=== PATIENT | male | born 1965 ===

== ENCOUNTER 2016-05-20 17:16 | Inpatient (IN) | payer OTHER ==
[~2016-05-20] VITALS: Ht 185.4 cm; Wt 108.9 kg
[~2016-05-20 17:16] MED LIST: CARV12.52 PO; GABA-536 PO; LAMO200T2 PO; VENL150C2 PO
--- NOTE | 2016-05-20 20:30 | NUR ---
ADMISSION NOTE BP: 157/98 HR: 94 RR: 16 SpO2: 100% T: 98.3 Pain: pt denies pain at this time. Ht: 6'1" Wt: 240 lbs CIWA: 8 Pt arrived ambulatory from [facility] to the third floor accompanied by a BHT at 1946. Pt is a 50 year old male admitted on 05/20/16 for ETOH dependency. Pt is full code with NKA. Pt reports a PMHx of hypertension, hyperlipidemia, hepatitis C, herniated disc, anxiety, depression, bipolar and mood disorder. He denies any history of seizures. Pt verbalized that he fell in the bathroom today (05/20/16). No bruising noted. He reports that he did not hit his head, but hit his back on the door knob. He reports he was admitted to the hospital a week and a half ago d/t being drunk, falling and hitting his head. He reports he received a CT scan which was negative. He verbalized that he has a PCP named Dr. Velasquez. He reports taking home medications of: 1. Gabapentin 100 mg TID 2. Lamictal 50 mg daily 3. Effexor 75 mg daily 4. Carvedilol PO HS 5. Risperdal 1 mg AM, 2 mg HS He verbalized that he is here for ETOH withdrawal. He verbalized that his longest period of sobriety was 6 years from [id number]. He reports having relapses throughout the years and his last sobriety was for 6 months September 18 2015-March 20 2016. He reports his current use as: 1. ETOH 1 gallon of beer daily x1 month Last dose: " 96 oz of twisted tea" 05/19/16 at 8pm. He reports his withdrawal symptoms as: nausea, vomiting, sweats and shakes. Upon assessment, pt is alert and oriented x4, anxious and cooperative. Speech is clear and audible. Heart rate regular. Pt denies chest pain or SOB. PERRLA, breathing is even and unlabored, lung sounds clear in all lobes. Abdomen is soft and non distended. Bowel sounds present in all four quadrants, last BM 05/20/16. Pt reports that BM is regular. Pt's skin is warm, dry and intact. Minor scratch noted on forehead d/t pt's recent fall. No bleeding noted, skin intact. MD aware of pt's admission. Pt oriented to room and unit. Pt safe with bed locked in lowest position, side rails up x2 and call light within reach. Will continue to monitor.
[2016-05-20 21:00] VITALS: BP 157/98
[2016-05-20] MEDS ORDERED: LORAZEPAM 1 MG TABLET PO PRN (21:00)
[2016-05-20] MEDS ORDERED: THIAMINE HCL 200 MG/2 ML VIAL IM ONE (21:00)
[2016-05-20] MEDS ORDERED: MAG HYDROX/AL HYDROX/SIMETH 30 ML LIQUID UDC PO PRN (21:00)
[2016-05-20] MEDS ORDERED: LORAZEPAM 2 MG/1 ML VIAL IM PRN (21:00)
[2016-05-20] MEDS ORDERED: METHOCARBAMOL 750 MG TABLET PO PRN (21:00)
[2016-05-20] MEDS ORDERED: MAGNESIUM HYDROXIDE 30 ML LIQUID UDC PO PRN (21:00)
[2016-05-20] MEDS ORDERED: diphenhydrAMINE 50 MG CAPSULE PO PRN (21:00)
[2016-05-20] MEDS ORDERED: MIRALAX 17 GM POWD.PACK PO PRN (21:00)
[2016-05-20] MEDS ORDERED: ACETAMINOPHEN 325 MG TABLET PO PRN (21:00)
[2016-05-20] MEDS ORDERED: LOPERAMIDE HCL 2 MG CAPSULE PO PRN (21:00)
[2016-05-20] MEDS ORDERED: PROMETHAZINE HCL 25 MG/1 ML VIAL IM PRN (21:00)
[2016-05-20] MEDS ORDERED: DICYCLOMINE HCL 20 MG TABLET PO PRN (21:00)
[2016-05-20] MEDS: ONDANSETRON ODT 4 MG TAB.RAPDIS SL PRN (21:11)
[2016-05-20] MEDS: CLONIDINE HCL 0.1 MG TABLET PO PRN (21:11)
[2016-05-20] MEDS: LORAZEPAM 1 MG TABLET PO PRN (21:11)
--- NOTE | 2016-05-20 21:12 | NUR ---
RN note Clonidine, Ativan, Zofran PRNs Pt with QR=347/[id number]. Administered Clonidine 0.1 mg PO Pt with c/o Nausea, no vomiting. Administered Zofran 4 mg SL. Pt c/o withdrawal symptoms, noted to have tremors, flushed skin and increasing anxiety. Administered Ativan 1 mg PO. CIWA=8. No SOB noted. RN to reassess.
[2016-05-20 21:31] LABS: BASOPHILS # (AUTO) 0.2 K/uL (0.0-0.2); BASOPHILS % (AUTO) 2.5 % (0.0-2.0); EOSINOPHILS % (AUTO) 0.5 % (0.0-7.0); HEMOGLOBIN 17.5 g/dL (14.0-18.0); LYMPHOCYTES # (AUTO) 0.8 K/uL (0.8-4.8); LYMPHOCYTES % (AUTO) 10.8 % (20.5-51.5); MEAN CORPUSCULAR HEMOGLOBIN 30.9 uug (27.0-31.0); MEAN CORPUSCULAR HGB CONC 34 g/dL (32.0-37.0); MEAN CORPUSCULAR VOLUME 89.9 fL (82.0-92.0); MONOCYTES # (AUTO) 0.8 K/uL (0.1-1.30); MONOCYTES % (AUTO) 11.2 % (0.0-11.0); NEUTROPHILS # (AUTO) 5.2 K/uL (1.8-8.9); PLATELET COUNT (AUTO) 137 K/uL (150-450); RED BLOOD CELL COUNT(AUTO) 5.67 MIL/uL (4.70-6.10); RED CELL DISTRIBUTION WIDTH 14.3 % (11.5-14.5)
[2016-05-20 21:33] LABS: ETHANOL < 3 MG/DL (0-0)
[2016-05-20 21:35] LABS: *AMPHETAMINE, URINE NEGATIVE (NEGATIVE); *BARBITURATE, URINE NEGATIVE (NEGATIVE); *CANNABINOID, URINE NEGATIVE (NEGATIVE); *COCCAINE, URINE NEGATIVE (NEGATIVE); *OPIATE, URINE NEGATIVE (NEGATIVE); *PHENCYCLIDINE SCREEN,URINE NEGATIVE (NEGATIVE)
[2016-05-20 21:48] LABS: ALANINE AMINOTRANSFERASE 217 U/L (16-63); ALKALINE PHOSPHATASE 77 U/L (50-136); ASPARTATE AMINOTRANSFERASE 229 U/L (15-37); BILIRUBIN,TOTAL 1.6 mg/dL (0.2-1.0); CALCIUM 9.6 mg/dL (8.5-10.1); CARBON DIOXIDE 29 mmol/L (21-32); CHLORIDE 96 mmol/L (98-107); CREATININE 1.3 mg/dL (0.6-1.3); GFR 58 mL/min (>60); GLUCOSE 170 mg/dL (74-106); POTASSIUM 3.8 mmol/L (3.5-5.1); SODIUM SERUM 136 mmol/L (136-145); TOTAL PROTEIN, SERUM 8.2 g/dL (6.4-8.2); UREA NITROGEN, BLOOD 18 mg/dL (7-18)
--- NOTE | 2016-05-20 22:12 | NUR ---
PRN CLONIDINE/ATIVAN/ZOFRAN REASSESSMENT PRN medications effective. Pt reports feeling better, decreased anxiety and decreased nausea. Noted to be resting in bed watching TV. Breathing is even and unlabored, safety measures in place. Will continue to monitor.
[2016-05-20 22:22] LABS: HIV-1 p24 ANTIGEN NON REACTIVE (NONREACTIVE); HIV-1/2 ANTIBODY NON REACTIVE (NONREACTIVE)
[2016-05-20 22:55] LABS: THYROID STIMULATING HORMONE 1.891 mIU/mL (0.358-3.740)
[2016-05-20] MEDS ORDERED: LORAZEPAM 1 MG TABLET PO ONE (23:45)
[2016-05-21] VITALS: BP 133/99
--- NOTE | 2016-05-21 00:05 | NUR ---
ONE TIME ATIVAN Pt reports feeling anxious/agitated and nauseous. CIWA: 9. One time Ativan 2 mg administered as ordered. Breathing even and unlabored, safety measures in place. Will continue to monitor effectiveness.
--- NOTE | 2016-05-21 01:05 | NUR ---
ONE TIME ATIVAN REASSESSMENT Medication effective. Pt lying in bed with eyes closed noted to be asleep. Respirations 16, breathing is even and unlabored. Safety measures in place. Will continue to monitor.
[2016-05-21 04:00] VITALS: BP 123/85
[2016-05-21] MEDS: ONDANSETRON ODT 4 MG TAB.RAPDIS SL PRN (04:13)
[2016-05-21] MEDS: LORAZEPAM 1 MG TABLET PO PRN (04:13)
--- NOTE | 2016-05-21 04:13 | NUR ---
PRN ATIVAN/ZOFRAN Pt reports feeling nauseous and anxious. Skin noted to be flushed. PRN Ativan 1 mg and Zofran 4 mg administered as ordered. CIWA:9. Breathing even and unlabored. Safety measures in place. Will continue to monitor.
--- NOTE | 2016-05-21 05:13 | NUR ---
PRN ATIVAN/ZOFRAN REASSESSMENT PRN medications effective. Pt lying in bed with eyes closed resting. Breathing even and unlabored, safety measures in place. Will continue to monitor.
--- NOTE | 2016-05-21 07:18 | NUR ---
END OF SHIFT Pt is a 50 year old male admitted on 05/20/16 for ETOH dependency. Pt is full code with NKA. He reports a PMHx of hypertension, hyperlipidemia, hepatitis C, herniated disc, anxiety, depression, bipolar and mood disorder. He denies any history of seizures. He received PRN Zofran x2, Clonidine, and Ativan x2. He slept a total of 3 hrs of and on, Intake: 1184 mL, Void: x2, BM: 0, CIWA: 9. Pt remains alert and oriented x4, breathing is even and unlabored, safety measurs in place. Endorsed to oncoming shift.
--- NOTE | 2016-05-21 07:49 | NUR ---
BEGINNING OF SHIFT Patient endorsement report received from date night caregiver nurse, all pertinent information discussed. patient is a 50 year old male admitted on 05/20/2016 with admitting Dx: etoh dependence. Patient with substance use history of:etoh-beer 1 gallon daily for one month. Patient with past medical history of: hypertension, hyperlipidemia, hep c + herniated disc, anxiety, depression, bipolar d/o, and mood d/o. Patient currently continues under observations, currently with no ongoing tapers, but has PRN medications for s/sx of withdrawal, as per date night caregiver patient received clonidine Ativan and Zofran at 2112, Ativan one time dose at 0005, Ativan and Zofran at 0413, medications were effective as per date night caregiver, patient with last ciwa score of: 9. Patient slept for 3 hours intermittently. Patient received awake, alert and oriented x4, educated regarding plan of care for the day and medication with regimen with good verbal understanding. safety measures in place. call light with in reach, will construes to monitor closely.
[2016-05-21 08:09] VITALS: BP 123/91
[2016-05-21] MEDS ORDERED: GABAPENTIN 400 MG CAPSULE PO SCH (09:00)
[2016-05-21] MEDS ORDERED: TUBERCULIN,PURIF.PROT.DERIV. 5 TU/0.1 ML TEST ID ONE (09:00)
[2016-05-21] MEDS: THIAMINE HCL 100 MG TABLET PO SCH (09:07)
[2016-05-21] MEDS: MULTIVITAMINS,THERAPEUTIC TABLET PO SCH (09:07)
[2016-05-21] MEDS: GABAPENTIN 100 MG CAPSULE PO SCH ×3 (09:07→21:05)
[2016-05-21] MEDS: LORAZEPAM 1 MG TABLET PO SCH ×4 (09:07→21:05)
[2016-05-21] MEDS: FOLIC ACID 1 MG TABLET PO SCH (09:08)
--- NOTE | 2016-05-21 09:08 | NUR ---
PRN PHENERGAN Patient reports intermittent nausea, no episodes of vomiting noted. Patient administered Phenergan injection as ordered, well tolerated, will monitor effectiveness.
[2016-05-21] MEDS: CARVEDILOL 25 MG TABLET PO SCH ×2 (09:17→18:29)
--- NOTE | 2016-05-21 10:08 | NUR ---
PHENERGAN REASSESSMENT Patient reports medication effective, feels less nausea, no episodes of vomiting noted, will continue to monitor.
[2016-05-21 13:18] VITALS: BP 122/86
[2016-05-21] MEDS: VENLAFAXINE XR 150 MG CAP.SR.24H PO SCH (13:36)
--- NOTE | 2016-05-21 14:00 | NUR ---
UDS POSITIVE BZO urine drug screen results patient, per patient he was hospitalized one week prior to coming here for public intoxication, per patient he has never taken bzo before, but he was probably administered some at the hospital, MD is aware will continue to monitor.
[2016-05-21 16:20] VITALS: BP 128/87
--- NOTE | 2016-05-21 18:58 | NUR ---
END OF SHIFT Patient alert and oriented x4, compliant with therapeutic plan of care, vital signs with in normal limits during shift. Patient continues on Ativan taper as ordered, well tolerated, no ASE. Patient with admitting Dx:etoh dependence. 0900 assessment patient presented with: intermittent nausea, fine tremors, barely sweat, moderate anxiety and mild agitation with ciwa score of: 13; 1300 assessment patient presented with: fine tremors, barely sweat, moderate anxiety, and mild agitation with ciwa score of: 9; 1700 assessment patient presented with: fine tremors, barely sweat, moderate anxiety, and mild agitation with ciwa score of: 9 Detox medication at reducing withdrawal symptoms as evident by decrease in ciwa scores. Patient encouraged to attend group therapies/sessions to learn new coping skills to prevent relapse, denies any SI/HI. Patient was administered PRN: Phenergan at 0908, medication effective one hour post administration. Patient encouraged increase in PO fluid intake as tolerated. Patients abdomen is soft and non distended, bowel sounds heard in all quadrats. no episodes of V/D noted. Safety measures in place. call light with in reach, patient endorsed to flame burner nurse, all pertinent information discussed.
--- NOTE | 2016-05-21 19:15 | NUR ---
START OF SHIFT Received 50 year old male patient admitted on 05/20/16 for ETOH dependency. Pt is full code with NKA. He reports a PMHx of hypertension, hyperlipidemia, hep C, herniated disc, anxiety, depression, bipolar and mood disorder. He reports drinking ETOH (beer) 1 gallon daily for one month. Last dose was 96 oz of twisted tea on 05/19/16. He denies any PMHx of seizure. Per endorsement, pt received PRN phenergan for nausea which was effective. Pt is alert and oriented x4, breathing is even and unlabored. Pt safe with bed locked in lowest position, side rails up x2 and call light within reach. Will continue to monitor.
[2016-05-21 20:00] VITALS: BP 118/81
[2016-05-21] MEDS: risperiDONE 2 MG TABLET PO SCH (21:05)
[2016-05-21] MEDS: LAMOTRIGINE 200 MG TABLET PO SCH (21:05)
[2016-05-22] VITALS: BP 118/86
[2016-05-22] MEDS: HYDROXYZINE PAMOATE 25 MG CAPSULE PO PRN (00:30)
--- NOTE | 2016-05-22 00:30 | NUR ---
PRN VISTARIL Pt complains of anxiety. PRN Vistaril administered as ordered. Breathing even and unlabored, safety measures in place. Will continue to monitor effectiveness of medication.
--- NOTE | 2016-05-22 01:30 | NUR ---
PRN VISTARIL REASSESSMENT PRN medication effective. Pt lying in bed with eyes closed noted to be asleep. Respirations 16, breathing is even and unlabored. Pt safe with bed locked in lowest position, side rails up x2 and call light within reach. Will continue to monitor.
--- NOTE | 2016-05-22 04:00 | NUR ---
VITALS 0400 vitals refused by pt. Breathing even and unlabored, safety measures in place. Will continue to monitor. Addendum: 05/22/16 at 0513 by KATHIA CHAPMAN RN Amended: Links added.
--- NOTE | 2016-05-22 07:18 | NUR ---
END OF SHIFT Pt is a 50 year old male patient admitted on 05/20/16 for ETOH dependency. Pt is full code with NKA. He reports a PMHx of hypertension, hyperlipidemia, hep C, herniated disc, anxiety, depression, bipolar and mood disorder. Pt received PRN Vistaril for anxiety which was effective. He slept a total of 7 hrs, Intake: 1210 mL, Void: x2, BM: x1, CIWA:7. Pt remains alert and oriented x4, breathing is even and unlabored. Pt safe with bed locked in lowest position, side rails up x2 and call light within reach. Endorsed to oncoming nurse.
[2016-05-22 08:00] VITALS: BP 116/77
--- NOTE | 2016-05-22 08:00 | NUR ---
START OF SHIFT Pt 50 y/o male admitted for etoh. Pt received in room awake in bed watching television. Pt alert and oriented to name, place, and time. Perrla. Skin warm and slightly moist to touch. Respirations even and unlabored. Bilateral hand tremors noted slightly. Pt with pressured speech during conversation this morning. It was reported that pt slept for 7 hours sleep last night. Bed on lowest position with side rails x2 up for safety. Call light within reach. No distress noted at this time.
[2016-05-22 08:25] LABS: FOLIC ACID 15.7 NG/ML (8.6-58.9)
[2016-05-22] MEDS: VENLAFAXINE XR 150 MG CAP.SR.24H PO SCH (08:41)
[2016-05-22] MEDS: CARVEDILOL 25 MG TABLET PO SCH ×2 (08:42→17:29)
[2016-05-22] MEDS: FOLIC ACID 1 MG TABLET PO SCH (08:42)
[2016-05-22] MEDS: GABAPENTIN 100 MG CAPSULE PO SCH ×3 (08:42→21:51)
[2016-05-22] MEDS: MULTIVITAMINS,THERAPEUTIC TABLET PO SCH (08:42)
[2016-05-22] MEDS: risperiDONE 1 MG TABLET PO SCH (08:42)
[2016-05-22] MEDS: THIAMINE HCL 100 MG TABLET PO SCH (08:42)
[2016-05-22] MEDS: LAMOTRIGINE 200 MG TABLET PO SCH (08:42)
[2016-05-22] MEDS: LORAZEPAM 1 MG TABLET PO SCH ×3 (08:42→21:50)
[2016-05-22 08:52] LABS: ALBUMIN 3.2 g/dL (3.4-5.0); BILIRUBIN,DIRECT 0.3 mg/dL (0.0-0.2); CALCIUM 8.6 mg/dL (8.5-10.1); MAGNESIUM 1.9 mg/dL (1.8-2.4); POTASSIUM 3.7 mmol/L (3.5-5.1); TOTAL PROTEIN, SERUM 6.6 g/dL (6.4-8.2)
[2016-05-22 11:10] LABS: HEMATOCRIT 42.8 % (40.0-50.0); LYMPHOCYTES % (AUTO) 28.6 % (20.5-51.5); MEAN CORPUSCULAR HGB CONC 35 g/dL (32.0-37.0); MEAN CORPUSCULAR VOLUME 91.4 fL (82.0-92.0); NEUTROPHILS % (AUTO) 53.5 % (38.5-71.5); PLATELET COUNT (AUTO) 204 K/uL (150-450); RED BLOOD CELL COUNT(AUTO) 4.68 MIL/uL (4.70-6.10); RED CELL DISTRIBUTION WIDTH 14.6 % (11.5-14.5); WHITE BLOOD COUNT (AUTO) 6.4 K/uL (4.0-11.2)
[2016-05-22 11:11] LABS: BASOPHILS # (AUTO) 0.1 K/uL (0.0-0.2); EOSINOPHILS # (AUTO) 0.2 K/uL (0.0-0.7); LYMPHOCYTES # (AUTO) 1.8 K/uL (0.8-4.8); MONOCYTES # (AUTO) 0.9 K/uL (0.1-1.30); MONOCYTES % (AUTO) 13.9 % (0.0-11.0); NEUTROPHILS # (AUTO) 3.4 K/uL (1.8-8.9)
--- NOTE | 2016-05-22 11:30 | NUR ---
NSG ENTRY LABS: Mf=175, A1c=6.3. Dr. Duarte made aware.
[2016-05-22 12:00] VITALS: BP 126/80
[2016-05-22 13:25] LABS: HCV AB >11.0 s/co ratio (0.0-0.9); HEPATITIS B CORE AB, IgM Negative (Negative); HEPATITIS B SURFACE AG Negative (Negative)
--- NOTE | 2016-05-22 14:00 | NUR ---
NSG ENTRY Pt observed in room on bed with eyes closed resting, but easily arousable to name. No distress noted at this time.
[2016-05-22 16:00] VITALS: BP 116/81
--- NOTE | 2016-05-22 19:20 | NUR ---
END OF SHIFT Pt 50 y/o male admitted for etoh dependence. Pt alert and oriented to name, place, and time. Perrla. Skin warm and slightly moist to touch. Respirations even and unlabored. Bilateral hand tremors noted slightly. Pt observed mostly in dining room throughout the day. Pt medication compliant and tolerated well. No ASe noted. Bed on lowest position with side rails x2 up for safety. Call light within reach. No distress noted at this time.
[2016-05-22 20:00] VITALS: BP 105/66
--- NOTE | 2016-05-22 20:00 | NUR ---
START OF SHIFT NOTE Received report from day shift nurse. Pt is 50 y o male, admitted on 05/20/16 for etoh (1 gallon of beer daily for 1 month). Pt is on 5 day Ativan taper started 05/22/16. Pt aaox4. Pt reports mild anxiety, reinforced on relaxation techniques. Noted minimal fingertip to fingertip tremors. Pt denies tingling/ numbing. Lung sounds clear, heart rate regular. Pt denies n/v/d, last BM 05/22/16. Pt denies urinary difficulties. Na 127 mg/ dL, HbA1C 6.3; made aware, NNO PMH of HTN, hyperlipidemia, Hepatitis C, anxiety, depression, bipolar, mood disorder, herniated disc. Pt full code, regular diet, NKA. Pt is on fall precautions, side rails up x 2, bed locked in lowest position, too light within reach. Will continue with plan of care.
[2016-05-22] MEDS: risperiDONE 2 MG TABLET PO SCH (21:51)
--- NOTE | 2016-05-23 | NUR ---
VS, CIWA Pt refused VS and CIWA assessment, state he wants to sleep and not to be bothered. Pt asleep, RR even and unlabored at 19breaths per minute. Side rails up x 2, call light within reach, bed locked in lowest position. Will continue To monitor Addendum: 05/23/16 at 0516 by SATHYA OSPINA RN Amended: Links added.
[2016-05-23 04:00] VITALS: BP 124/87
--- NOTE | 2016-05-23 04:00 | NUR ---
PRN VISTARIL Pt awake, c/o increasing anxiety; VS WNL; CIWA 4. Administered V Istaril 50 mg PO prn for anxiety. Side rails up x 2, bed in lowest position, call light within reach
[2016-05-23] MEDS: HYDROXYZINE PAMOATE 25 MG CAPSULE PO PRN (04:12)
--- NOTE | 2016-05-23 05:00 | NUR ---
REASSESSMENT Pt seeping soundly; RR even and unlabored. Will continue to monitor
--- NOTE | 2016-05-23 07:44 | NUR ---
END OF SHIFT NOTE Pt is 50 y o male, admitted on 05/20/16 for etoh (1 gallon of beer daily for 1 month). Pt is on day 2 of 5 day Ativan taper started 05/22/16. Withdrawal s/s included anxity, tremors, sweats. Last CIWA = 4 at 0400, VSS. Pt received all scheduled medications, as well as prn Vistaril for anxiety at 0400. Vistaril was effective. Noted . Na 127 mg/ dL, HbA1C 6.3; made aware, NNO. Pt slept for 5 hrs. PMH of HTN, hyperlipidemia, Hepatitis C, anxiety, depression, bipolar, mood disorder, herniated disc. Pt full code, regular diet, NKA. Pt is on fall precautions. Report endorsed to day shift nurse.
[2016-05-23 08:00] VITALS: BP 115/65
[2016-05-23] MEDS: VENLAFAXINE XR 150 MG CAP.SR.24H PO SCH (08:00)
[2016-05-23] MEDS: risperiDONE 1 MG TABLET PO SCH (08:00)
[2016-05-23] MEDS: MULTIVITAMINS,THERAPEUTIC TABLET PO SCH (08:00)
--- NOTE | 2016-05-23 08:00 | NUR ---
START OF SHIFT Pt 50 y/o male admitted for etoh. Pt received in room awake in bed watching television. Pt alert and oriented to name, place, and time. Perrla. Skin warm and slightly moist to touch. Respirations even and unlabored. Bilateral hand tremors noted slightly. Pt with pressured speech during conversation this morning. It was reported that pt slept for 5 hours sleep last night. Bed on lowest position with side rails x2 up for safety. Call light within reach. No distress noted at this time.
[2016-05-23] MEDS: FOLIC ACID 1 MG TABLET PO SCH (08:01)
[2016-05-23] MEDS: CARVEDILOL 25 MG TABLET PO SCH ×2 (08:01→17:30)
[2016-05-23] MEDS: THIAMINE HCL 100 MG TABLET PO SCH (08:01)
[2016-05-23] MEDS: LORAZEPAM 1 MG TABLET PO SCH ×4 (08:01→20:59)
[2016-05-23] MEDS: GABAPENTIN 100 MG CAPSULE PO SCH ×3 (08:01→20:59)
[2016-05-23] MEDS: LAMOTRIGINE 200 MG TABLET PO SCH (08:01)
[2016-05-23 10:11] LABS: BILIRUBIN,DIRECT 0.2 mg/dL (0.0-0.2); BILIRUBIN,TOTAL 0.5 mg/dL (0.2-1.0); CALCIUM 8.6 mg/dL (8.5-10.1); TOTAL PROTEIN, SERUM 6.2 g/dL (6.4-8.2)
[2016-05-23] MEDS: LOPERAMIDE HCL 2 MG CAPSULE PO PRN (11:19)
--- NOTE | 2016-05-23 11:26 | NUR ---
PRN Pt with observed loose stool. Pt stated had 2 episodes of loose stool this morning but did not notify any staff. Encouraged pt to notify staff with each episode of loose stool. Immodium 4mg po prn initial dose given and tolerated well.
[2016-05-23 12:00] VITALS: BP 98/55
--- NOTE | 2016-05-23 14:00 | NUR ---
PRN EVAL Stool was collected for c.diff test - lab. Stool is formed.
[2016-05-23] MEDS: IBUPROFEN 400 MG TABLET PO PRN (14:36)
--- NOTE | 2016-05-23 14:37 | NUR ---
PRN Pt with c/o body aches 08/08. Motrin po prn per MD order given and tolerated well.
[2016-05-23 17:00] VITALS: BP 103/59
--- NOTE | 2016-05-23 19:31 | NUR ---
END OF SHIFT Pt 50 y/o male admitted for etoh dependence. Pt alert and oriented to name, place, and time. Perrla. Skin warm and slightly moist to touch. Respirations even and unlabored. Bilateral hand tremors noted slightly. Pt observed mostly in dining room throughout the day. Pt medication compliant and tolerated well. No ASe noted. Bed on lowest position with side rails x2 up for safety. Call doe devin martin. No distress noted at this time.
--- NOTE | 2016-05-23 19:55 | NUR ---
START OF SHIFT NOTE Received report from day shift nurse. Pt is 50 y o male, admitted on 05/20/16 for etoh (1 gallon of beer daily for 1 month). Pt is on day 2 of 5 day Ativan taper started 05/22/16. PMH of HTN, hyperlipidemia, Hepatitis C, anxiety, depression, bipolar, mood disorder, herniated disc. Pt full code, regular diet, NKA. Pt aaox4. Pt reports mild anxiety today on/off, reinforced on relaxation techniques. Skin intact, warm, flushed with minimal sweating. Noted minimal fingertip to fingertip tremors. Pt denies tingling/ numbing. Lung sounds clear, heart rate regular. Pt denies n/v/d at this time, last BM 05/23/16, bowel sounds active x 4 . Pt denies urinary difficulties. Pt is on fall precautions, side rails up x 2, bed locked in lowest position, too light within reach. Will continue with plan of care.
[2016-05-23 20:00] VITALS: BP 109/66
[2016-05-23] MEDS: risperiDONE 2 MG TABLET PO SCH (20:59)
--- NOTE | 2016-05-23 21:35 | NUR ---
RECEIVED NEW ORDER received new order from Dr Russell avitia Seroquel 50 mg HSPRN PO for sleep. Order clarified and carried out
[2016-05-23] MEDS ORDERED: QUETIAPINE FUMARATE 25 MG TABLET PO SCH (21:45)
--- NOTE | 2016-05-23 22:20 | NUR ---
PRN SEROQUEL Pt reports insomnia. Administered prn Seroquel 50 mg PO. Side rails up x 2, call light within reach, bed locked in lowest position
--- NOTE | 2016-05-23 23:30 | NUR ---
REASSESSMENT Pt sleeping soundly, did not disturb. RR even and unlabored
--- NOTE | 2016-05-24 | NUR ---
VS, CIWA Pt refused VS and CIWA assessment, states he wants to sleep and not to be bothered. Pt asleep, RR even and unlabored at 17 breaths per minute. Side rails up x 2, call light within reach, bed locked in lowest position. Will continue to monitor Addendum: 05/24/16 at 0324 by SATHYA OSPINA RN Amended: Links added.
--- NOTE | 2016-05-24 04:00 | NUR ---
VS, CIWA Pt refused VS and CIWA assessment, state he wants to sleep and not to be bothered. Pt in bed with eyes closed, RR even and unlabored at 19 breaths per minute. Side rails up x 2, call light within reach, bed locked in lowest position. Will continue to monitor Addendum: 05/24/16 at 0530 by SATHYA OSPINA RN Amended: Links added.
[2016-05-24] MEDS ORDERED: QUETIAPINE FUMARATE 25 MG TABLET PO PRN (07:05)
--- NOTE | 2016-05-24 07:19 | NUR ---
END OF SHIFT NOTE Pt is 50 y o male, admitted on 05/20/16 for etoh (1 gallon of beer daily for 1 month). Pt is on day 3 of 5 day Ativan taper started 05/22/16. Withdrawal s/s included anxiety, minimal tremors, flushed face, sweats, insomnia . Last CIWA = 4 at 0000, VSS. Pt received all scheduled medications. Pt c/o insomnia, was given Seroquel prn 50 mg (received new order from dr. Wells). Pt slept for 7 hrs. PO intake 1907 ml, urination x 3. Pt noted with hx of episodes of diarrhea 05/23/16, stool specimen collected for C Dif, pending results. PMH of HTN, hyperlipidemia, Hepatitis C, anxiety, depression, bipolar, mood disorder, herniated disc. Pt full code, regular diet, NKA. Pt is on fall precautions. Report endorsed to day shift nurse.
--- NOTE | 2016-05-24 07:19 | NUR ---
Start of shift note Pt was admitted for ETOH dependence. pt has a PMH of HTN, hyperlipemia, Hep C, herniated disc, anxiety, depression, bipolar and mood disorder. Pt is on a 5 day ativan taper. Per report, pt had diarrhea, stool for c-diff was sent to lab. Diarrhea was relieved with imodium. Pt is currently sleeping in his bed. Respirations are even and unlabored. Bed is locked in a low position, call light within reach. Will continue to monitor pt. All needs addressed at this time.
[2016-05-24 07:37] LABS: HEMATOCRIT 41.2 % (40.0-50.0); HEMOGLOBIN 13.7 g/dL (14.0-18.0); MEAN CORPUSCULAR HEMOGLOBIN 31.1 uug (27.0-31.0); MEAN CORPUSCULAR HGB CONC 33 g/dL (32.0-37.0); MEAN CORPUSCULAR VOLUME 93.3 fL (82.0-92.0); PLATELET COUNT (AUTO) 106 K/uL (150-450); RED BLOOD CELL COUNT(AUTO) 4.42 MIL/uL (4.70-6.10); RED CELL DISTRIBUTION WIDTH 14.2 % (11.5-14.5); WHITE BLOOD COUNT (AUTO) 4.4 K/uL (4.0-11.2)
[2016-05-24 07:48] LABS: CALCIUM 8.6 mg/dL (8.5-10.1); MAGNESIUM 2.2 mg/dL (1.8-2.4); POTASSIUM 4.3 mmol/L (3.5-5.1)
[2016-05-24 08:00] VITALS: BP 105/60
[2016-05-24] MEDS: CARVEDILOL 25 MG TABLET PO SCH ×2 (08:00→18:28)
--- NOTE | 2016-05-24 08:15 | NUR ---
Medication held Held coreg per parameters. Pt has a BP of 105/55 HR of 75. Parameters state to hold med for BP <110/70
[2016-05-24] MEDS: THIAMINE HCL 100 MG TABLET PO SCH (09:12)
[2016-05-24] MEDS: MULTIVITAMINS,THERAPEUTIC TABLET PO SCH (09:12)
[2016-05-24] MEDS: risperiDONE 1 MG TABLET PO SCH (09:12)
[2016-05-24] MEDS: LAMOTRIGINE 200 MG TABLET PO SCH (09:12)
[2016-05-24] MEDS: GABAPENTIN 100 MG CAPSULE PO SCH (09:12)
[2016-05-24] MEDS: LORAZEPAM 1 MG TABLET PO SCH ×3 (09:12→21:18)
[2016-05-24] MEDS: FOLIC ACID 1 MG TABLET PO SCH (09:12)
[2016-05-24] MEDS: VENLAFAXINE XR 150 MG CAP.SR.24H PO SCH (09:12)
[2016-05-24] MEDS ORDERED: TRAZODONE 50 MG TABLET PO PRN (10:00)
[2016-05-24 12:00] VITALS: BP 130/76
[2016-05-24 12:12] LABS: BASOPHILS % (AUTO) 0.8 % (0.0-2.0); EOSINOPHILS % (AUTO) 3.1 % (0.0-7.0); LYMPHOCYTES % (AUTO) 26.8 % (20.5-51.5); MONOCYTES % (AUTO) 18.6 % (0.0-11.0); NEUTROPHILS % (AUTO) 50.7 % (38.5-71.5)
[2016-05-24 12:16] LABS: LYMPHOCYTES % (MANUAL) 0 % (20-40); NEUTROPHILS % (MANUAL) 0 % (42-75)
[2016-05-24] MEDS: LOPERAMIDE HCL 2 MG CAPSULE PO PRN (14:10)
[2016-05-24] MEDS: GABAPENTIN 300 MG CAPSULE PO SCH ×2 (14:10→21:18)
--- NOTE | 2016-05-24 14:10 | NUR ---
PRN administration Pt c/o diarrhea, administered imodium per MD order. Will continue to monitor pt.
--- NOTE | 2016-05-24 15:10 | NUR ---
Reassessment Pt states that the imodium was effective.Will continue to monitor pt.
[2016-05-24 17:45] VITALS: BP 129/82
--- NOTE | 2016-05-24 19:10 | NUR ---
End of shift note Pt was admitted for ETOH dependence. pt has a PMH of HTN, hyperlipemia, Hep C, herniated disc, anxiety, depression, bipolar and mood disorder. Pt is on a 5 day ativan taper. Pt is tolerating the taper well. During shift pt CIWA went from a 9 to a 2. Pt had 1 PRN dose of imodium with relief. Pt states that he is comfortable at this time. Pt participated in group and other activities during the shift. SBAR report endorsed to stripper apprentice. All needs addressed at this time.
--- NOTE | 2016-05-24 19:15 | NUR ---
START OF SHIFT Received 50 year old male patient admitted on 05/20/16 for ETOH dependency. Pt is full code with NKA. He reports drinking 1 gallon of beer daily for one month. Last dose was 96 oz of twisted tea on 05/19/16. He denies PMHx of seizure. Pt placed on 5 day Ativan taper started on 05/22/16 and tolerating well. Per endorsement, pt received Imodium with effect. Pt is alert and oriented x4, breathing is even and unlabored, safety measures in place. Will continue to monitor.
[2016-05-24 20:00] VITALS: BP 129/83
[2016-05-24] MEDS: risperiDONE 2 MG TABLET PO SCH (21:19)
[2016-05-24] MEDS ORDERED: QUETIAPINE FUMARATE 25 MG TABLET PO ONE (22:00)
[2016-05-24] MEDS ORDERED: QUETIAPINE FUMARATE 25 MG TABLET PO SCH (22:00)
[2016-05-24] MEDS ORDERED: QUETIAPINE FUMARATE 25 MG TABLET ONE (22:15)
--- NOTE | 2016-05-24 22:20 | NUR ---
ONE TIME SEROQUEL Pt complains of inability to sleep and refused Trazodone d/t pt reports that Trazodone is ineffective for him. Dr. Wells with new order for Seroquel 50 mg x1 administered as ordered. Breathing even and unlabored. Safety measures in place. Will continue to monitor effectiveness.
--- NOTE | 2016-05-24 23:20 | NUR ---
SEROQUEL REASSESSMENT Medication effective. Pt lying in bed with eyes closed noted to be asleep. Respirations 16, breathing even and unlabored. Pt safe with bed locked in lowest position, side rails up x2 and call light within reach. Will continue to monitor.
--- NOTE | 2016-05-25 | NUR ---
VITALS 0000 vitals refused. Pt lying in bed with eyes closed noted to be asleep. Respirations 16, breathing is even and unlabored. Pt safe with bed locked in lowest position, side rails up x2 and call light within reach. Will continue to monitor. Addendum: 05/25/16 at 0208 by KATHIA CHAPMAN RN Amended: Links added.
--- NOTE | 2016-05-25 04:00 | NUR ---
VITALS 0400 vitals refused. Pt lying in bed with eyes closed noted to be asleep. Respirations 16, breathing is even and unlabored. Pt safe with bed locked in lowest position, side rails up x2 and call light within reach. Will continue to monitor.
--- NOTE | 2016-05-25 07:15 | NUR ---
END OF SHIFT Pt is a 50 year old male patient admitted on 05/20/16 for ETOH dependency. Pt is full code with NKA. Pt placed on 5 day Ativan taper started on 05/22/16 and tolerating well. Pt received one time order of Seroquel for insomnia. Medication was effective. He slept a total of 7 hrs, Intake: 1082 mL, Void: x1, BM: 0. CIWA:3. Pt remains alert and oriented x4, breathing is even and unlabored, safety measures in place. Endorsed to oncoming shift.
--- NOTE | 2016-05-25 07:45 | NUR ---
START OF SHIFT REPORT RECEIVED FROM AIRPORT SCREENER NURSE. PT IS A 50 YO MALE ADMITTED ON 05/20/16 FOR DRINKING A GALLON OF BEER DAILY FOR 1 MONTH. PT IS TO START DAY 4 OF A 5-DAY ATIVAN TAPER. LAST AIRPORT SCREENER CIWA=3. PT IS FULL CODE, REGULAR DIET, NKA. PT REPORTS MED HX HTN, HYPERLIPIDEMIA, HEP-C+, HERNIATED DISC; PSYCH HX ANXIETY, DEPRESSION, BIPOLAR DO, MOOD DO. PT SLEPT 7 HOURS LAST NIGHT. PT IS CURRENTLY IN ROOM EATING BREAKFAST, TOLERATING DIET WELL. PT C/O ANXIETY, TREMOR, HEADACHE. ALL SAFETY PRECAUTIONS ARE IN PLACE.
[2016-05-25 08:00] VITALS: BP 143/86
[2016-05-25] MEDS: LORAZEPAM 1 MG TABLET PO SCH ×2 (08:32→21:22)
[2016-05-25] MEDS: risperiDONE 1 MG TABLET PO SCH (08:32)
[2016-05-25] MEDS: THIAMINE HCL 100 MG TABLET PO SCH (08:32)
[2016-05-25] MEDS: FOLIC ACID 1 MG TABLET PO SCH (08:32)
[2016-05-25] MEDS: CARVEDILOL 25 MG TABLET PO SCH ×2 (08:32→17:31)
[2016-05-25] MEDS: GABAPENTIN 300 MG CAPSULE PO SCH (08:32)
[2016-05-25] MEDS: IBUPROFEN 400 MG TABLET PO PRN (08:32)
--- NOTE | 2016-05-25 08:32 | NUR ---
PRN MOTRIN: PT C/O HEADACHE. RATES PAIN 6/10. ADMINISTERED PRN MOTRIN ORDERED. WILL CONTINUE TO MONITOR.
[2016-05-25] MEDS: LAMOTRIGINE 200 MG TABLET PO SCH (08:33)
[2016-05-25] MEDS: VENLAFAXINE XR 75 MG CAP.SR.24H PO SCH (08:33)
[2016-05-25] MEDS: MULTIVITAMINS,THERAPEUTIC TABLET PO SCH (08:37)
[2016-05-25] MEDS ORDERED: VENLAFAXINE XR 150 MG CAP.SR.24H PO SCH (09:00)
[2016-05-25 09:03] LABS: HEMATOCRIT 41.7 % (40.0-50.0); HEMOGLOBIN 13.6 g/dL (14.0-18.0); MEAN CORPUSCULAR HEMOGLOBIN 30.5 uug (27.0-31.0); MEAN CORPUSCULAR HGB CONC 33 g/dL (32.0-37.0); PLATELET COUNT (AUTO) 128 K/uL (150-450); RED BLOOD CELL COUNT(AUTO) 4.48 MIL/uL (4.70-6.10); RED CELL DISTRIBUTION WIDTH 14.4 % (11.5-14.5)
[2016-05-25 09:11] LABS: WHITE BLOOD COUNT (AUTO) 5.9 K/uL (4.0-11.2)
[2016-05-25 09:23] LABS: CALCIUM 8.3 mg/dL (8.5-10.1); POTASSIUM 4.6 mmol/L (3.5-5.1)
[2016-05-25 09:24] LABS: BILIRUBIN,DIRECT 0.1 mg/dL (0.0-0.2); BILIRUBIN,TOTAL 0.3 mg/dL (0.2-1.0); MAGNESIUM 2.2 mg/dL (1.8-2.4); TOTAL PROTEIN, SERUM 6.3 g/dL (6.4-8.2)
--- NOTE | 2016-05-25 09:35 | NUR ---
REASSESSMENT: PT DENIES HEADACHE AT THIS TIME. PRN MOTRIN EFFECTIVE. WILL CONTINUE TO MONITOR.
[2016-05-25 11:11] LABS: EOSINOPHILS % (MANUAL) 1 % (0-8); LYMPHOCYTES % (MANUAL) 27 % (20-40); METAMYELOCYTES % 1 % (0-1); MONOCYTES % (MANUAL) 16 % (2-10); NEUTROPHILS % (MANUAL) 55 % (42-75)
[2016-05-25 11:13] LABS: PLATELET ESTIMATE ADEQUATE
[2016-05-25 12:00] VITALS: BP 146/79
[2016-05-25] MEDS: HYDROXYZINE PAMOATE 25 MG CAPSULE PO PRN (14:37)
[2016-05-25] MEDS: GABAPENTIN 400 MG CAPSULE PO SCH ×2 (14:37→21:22)
[2016-05-25] MEDS: DICYCLOMINE HCL 20 MG TABLET PO SCH ×2 (14:37→21:22)
--- NOTE | 2016-05-25 14:37 | NUR ---
PRN VISTARIL: PT C/O INCREASED ANXIETY. ADMINISTERED PRN VISTARIL ORDERED. WILL CONTINUE TO MONITOR.
--- NOTE | 2016-05-25 15:40 | NUR ---
REASSESSMENT: PT IS IN BED WITH EYES CLOSED. RESPIRATIONS ARE EVEN AND UNLABORED. NO S/S OF ACUTE DISTRESS NOTED. PRN VISTARIL EFFECTIVE. WILL CONTINUE TO MONITOR.
[2016-05-25 16:00] VITALS: BP 143/87
--- NOTE | 2016-05-25 19:15 | NUR ---
START OF SHIFT Received 50 year old male patient admitted on 05/20/16 for ETOH dependency. Pt is full code with NKA. He reports drinking 1 gallon of beer daily for one month. Last dose was 96 oz of twisted tea on 05/19/16. He denies PMHx of seizure. Pt placed on 5 day Ativan taper started on 05/22/16 and tolerating well. Per endorsement, pt received PRN Motrin and Vistaril. Pt is alert and oriented x4, breathing is even and unlabored, safety measures in place. Will continue to monitor.
--- NOTE | 2016-05-25 19:24 | NUR ---
END OF SHIFT NOTE: PT IS A 50 YO MALE ADMITTED ON 05/20/16 FOR DRINKING A GALLON OF BEER DAILY FOR 1 MONTH. PT IS ON DAY 4 OF A 5-DAY ATIVAN TAPER. PT IS FULL CODE, REGULAR DIET, NKA. PT REPORTS MED HX HTN, HYPERLIPIDEMIA, HEP-C+, HERNIATED DISC; PSYCH HX ANXIETY, DEPRESSION, BIPOLAR DO, MOOD DO. CIWA SCORE WAS 9 AT START OF SHIFT, AND ATIVAN TAPER LOWERED SCORE TO 3. PRN MOTRIN FOR HEADACHE AND PRN VISTARIL FOR ANXIETY HELPED MANAGE ADDITIONAL S/S OF WITHDRAWAL. LAST CIWA=2 AT 16:00. PT CONSUMED 100% OF ALL MEALS. INTAKE 2600ML, URINE X4, BM X2.
[2016-05-25 20:00] VITALS: BP 137/71
--- NOTE | 2016-05-25 20:12 | NUR ---
RN note Seroquel order Pt refused Trazodone. Contacted Dr. Randle and ordered Seroquel 50 mg PO HS. To be administered after verification from pharmacy.
[2016-05-25] MEDS: CLONIDINE HCL 0.1 MG TABLET PO SCH (21:22)
[2016-05-25] MEDS: QUETIAPINE FUMARATE 25 MG TABLET PO SCH (21:22)
[2016-05-25] MEDS: risperiDONE 2 MG TABLET PO SCH (21:22)
--- NOTE | 2016-05-26 | NUR ---
VITALS 0000 vitals refused by pt at beginning of shift. Pt lying in bed with eyes closed noted to be asleep. Respirations 16, breathing is even and unlabored, safety measures in place. Will continue to monitor. Addendum: 05/26/16 at 0344 by KATHIA CHAPMAN RN Amended: Links added.
--- NOTE | 2016-05-26 04:00 | NUR ---
VITALS 0400 vitals refused by pt at beginning of shift. Pt lying in bed with eyes closed noted to be asleep. Respirations 16, breathing is even and unlabored, safety measures in place. Will continue to monitor.
--- NOTE | 2016-05-26 07:10 | NUR ---
END OF SHIFT Pt is a 50 year old male patient admitted on 05/20/16 for ETOH dependency. Pt is full code with NKA. Pt placed on 5 day Ativan taper started on 05/22/16. Pt completed taper and tolerated well. Pt did not receive or request PRN medications. He slept a total of 5 hrs, intake: 1053 mL, Void: x2, BM: 0. CIWA: 2. Pt remains alert and oriented x4, breathing is even and unlabored, safety measures in place. Endorsed to oncoming nurse.
[2016-05-26 08:00] VITALS: BP 137/89
--- NOTE | 2016-05-26 08:00 | NUR ---
START OF SHIFT Pt 50 y/o male admitted for etoh. Pt received in room awake in bed. Pt alert and oriented to name, place, and time. Perrla. Skin warm and dry to touch. Respirations even and unlabored. It was reported that pt slept for 5 hours last night. Bed on lowest position with side rails x2 up for safety. Call light within reach. No distress noted at this time. Addendum: 05/26/16 at 0914 by KELLI HIGGINBOTHAM RN incorrect pt
--- NOTE | 2016-05-26 08:00 | NUR ---
START OF SHIFT Pt 50 y/o male admitted for etoh. Pt received in room awake in bed watching television. Pt alert and oriented to name, place, and time. Perrla. Skin warm and dry to touch. Respirations even and unlabored. Pt stated he feels anxious this morning. It was reported that pt slept for 5 hours sleep last night. Bed on lowest position with side rails x2 up for safety. Call light within reach. No distress noted at this time.
[2016-05-26] MEDS: MULTIVITAMINS,THERAPEUTIC TABLET PO SCH (08:38)
[2016-05-26] MEDS: risperiDONE 1 MG TABLET PO SCH (08:38)
[2016-05-26] MEDS: FOLIC ACID 1 MG TABLET PO SCH (08:39)
[2016-05-26] MEDS: VENLAFAXINE XR 75 MG CAP.SR.24H PO SCH (08:39)
[2016-05-26] MEDS: DICYCLOMINE HCL 20 MG TABLET PO SCH ×3 (08:39→21:21)
[2016-05-26] MEDS: LAMOTRIGINE 200 MG TABLET PO SCH (08:39)
[2016-05-26] MEDS: HYDROXYZINE PAMOATE 25 MG CAPSULE PO PRN ×2 (08:39→17:49)
[2016-05-26] MEDS: CARVEDILOL 25 MG TABLET PO SCH ×2 (08:39→17:49)
[2016-05-26] MEDS: GABAPENTIN 400 MG CAPSULE PO SCH (08:39)
[2016-05-26] MEDS: THIAMINE HCL 100 MG TABLET PO SCH (08:39)
[2016-05-26] MEDS: CLONIDINE HCL 0.1 MG TABLET PO SCH ×2 (08:40→21:21)
--- NOTE | 2016-05-26 08:44 | NUR ---
PRN Pt with c/o anxiety. Vistaril po prn per MD order given and tolerated well.
--- NOTE | 2016-05-26 09:44 | NUR ---
[place] Pt observed in dining room sitting on chair. No distress noted at this time.
[2016-05-26 12:00] VITALS: BP 109/62
[2016-05-26] MEDS: GABAPENTIN 300 MG CAPSULE PO SCH ×2 (15:29→21:20)
[2016-05-26 16:00] VITALS: BP 138/71
[2016-05-26] MEDS: CLONIDINE HCL 0.1 MG TABLET PO PRN (17:50)
--- NOTE | 2016-05-26 17:51 | NUR ---
PRN Pt with c/o anxiety. Vistaril po prn per MD order and catapres po prn per MD order given and tolerated well.
--- NOTE | 2016-05-26 19:31 | NUR ---
END OF SHIFT Pt 50 y/o male admitted for etoh. Pt alert and oriented to name, place, and time. Perrla. Skin warm and dry to touch. Respirations even and unlabored. Pt medication compliant and tolerated well. Bed on lowest position with side rails x2 up for safety. Call light within reach. No distress noted at this time.
[2016-05-26 20:00] VITALS: BP 121/87
--- NOTE | 2016-05-26 20:00 | NUR ---
START OF SHIFT NOTE: REPORT RECEIVED FROM DAY SHIFT NURSE. PT IS A 50YO MALE ADMITTED ON 05/20/16 FOR ETOH DEPENDENCE/WITHDRAWAL. PT REPORTS DRINKING ONE GALLON OF BEER DAILY FOR 1 MONTH. LAST DAY SHIFT CIWA=2. PT IS TO DISCHARGE TOMORROW; DISCHARGE UDS COLLECTION AND RESULTS PRINTED ENDORSED FROM DAY SHIFT. PT REPORTS MED HX OF HTN, HYPERLIPIDEMIA, HEP-C+, HERNIATED DISK; PSYCH HX ANXIETY, DEPRESSION, BIPOLAR DO, MOOD DO. PT IS A FULL CODE, ON A REGULAR DIET, AND REPORTS NKA. PT SKIN IS INTACT. PT IS CURRENTLY IN ROOM, IN BED. ALL NEEDS ATTENDED AND MET, ALL SAFETY PRECAUTIONS ARE IN PLACE. WILL CONTINUE TO MONITOR.
[2016-05-26] MEDS: IBUPROFEN 400 MG TABLET PO PRN (21:21)
[2016-05-26] MEDS: QUETIAPINE FUMARATE 25 MG TABLET PO SCH (21:21)
[2016-05-26] MEDS: risperiDONE 2 MG TABLET PO SCH (21:21)
--- NOTE | 2016-05-26 21:21 | NUR ---
PRN MOTRIN: PT C/O GENERALIZED PAIN, RATING PAIN 3/10. ADMINISTERED PRN MOTRIN ORDERED. WILL CONTINUE TO MONITOR.
--- NOTE | 2016-05-26 22:25 | NUR ---
REASSESSMENT: PT IS IN BED WITH EYES CLOSED. RESPIRATIONS ARE EVEN AND UNLABORED. NO S/S OF ACUTE DISTRESS NOTED. PRN MOTRIN EFFECTIVE. WILL CONTINUE TO MONITOR.
[2016-05-26] MEDS ORDERED: RISP1TAB7 PO (22:37)
[2016-05-26] MEDS ORDERED: HYDR-3895 PO (22:37)
[2016-05-26] MEDS ORDERED: DICY20TA28 PO (22:37)
[2016-05-26] MEDS ORDERED: VENL75CA56 PO (22:37)
[2016-05-26] MEDS ORDERED: Gabapentin PO (22:37)
[2016-05-26] MEDS ORDERED: QUET25TA PO (22:37)
[2016-05-26] MEDS ORDERED: RISP2TAB5 PO (22:37)
[2016-05-26 23:09] LABS: *AMPHETAMINE, URINE NEGATIVE (NEGATIVE); *BARBITURATE, URINE NEGATIVE (NEGATIVE); *CANNABINOID, URINE NEGATIVE (NEGATIVE); *COCCAINE, URINE NEGATIVE (NEGATIVE); *OPIATE, URINE NEGATIVE (NEGATIVE); *PHENCYCLIDINE SCREEN,URINE NEGATIVE (NEGATIVE)
--- NOTE | 2016-05-27 | NUR ---
VITALS/CIWA REFUSED: PT REFUSES ORDERED 00:00 VITALS AND CIWA ASSESSMENTS. PT EDUCATED ON RISKS AND BENEFITS. ALL SAFETY PRECAUTIONS ARE IN PLACE. WILL CONTINUE TO MONITOR. Addendum: 05/27/16 at 0255 by CHASTITY ROMERO RN Amended: Links added.
[2016-05-27] MEDS: HYDROXYZINE PAMOATE 25 MG CAPSULE PO PRN ×2 (00:47→08:44)
--- NOTE | 2016-05-27 00:47 | NUR ---
PRN VISTARIL: PT C/O INCREASED ANXIETY. ADMINISTERED PRN VISTARIL ORDERED. WILL CONTINUE TO MONITOR.
--- NOTE | 2016-05-27 01:45 | NUR ---
REASSESSMENT: PT IS IN BED WITH EYES CLOSED. RESPIRATIONS ARE EVEN AND UNLABORED. NO S/S OF ACUTE DISTRESS NOTED. PRN VISTARIL EFFECTIVE. WILL CONTINUE TO MONITOR.
--- NOTE | 2016-05-27 04:00 | NUR ---
VITALS & CIWA REFUSED: PT REFUSES ORDERED 04:00 VITALS AND CIWA ASSESSMENTS. PT EDUCATED ON RISKS AND BENEFITS BUT CONTINUED TO REFUSE. ALL SAFETY PRECAUTIONS ARE IN PLACE. WILL CONTINUE TO MONITOR. Addendum: 05/27/16 at 0713 by CHASTITY ROMERO RN Amended: Links added.
--- NOTE | 2016-05-27 07:02 | NUR ---
Start of Shift Endorsement received from nightshift nurse. Pt is a 50 y/o male admitted for alcohol dependence. Pt has been placed on a 5 day Ativan taper. Pt is scheduled to be discharged today on 05/27/16. All documentation has been completed and patient reports readiness for discharge. Pt received PRN Vistaril and Motrin and reports sleeping 6 hours. VS WNL, Full code . PT is alert and oriented x4. Pt is in STABLE condition at this time. Remains compliant with medication and diet regimen. All needs have been met, All safety measures in place per hospital policy. Bed in lowest position, side rails up x2, call-light within reach. Will continue to monitor
--- NOTE | 2016-05-27 07:24 | NUR ---
END OF SHIFT NOTE: PT IS A 50YO MALE ADMITTED TO [facility] ON 05/20/16 FOR ETOH DEPENDENCE AND WITHDRAWAL. PT REPORTS DRINKING ONE GALLON OF BEER DAILY FOR 1 MONTH. LAST CIWA THIS SHIFT WAS 4 AT 20:00. IN ADDITION TO SCHEDULED MEDICATION REGIME, S/S OF MILD WITHDRAWAL MANAGED WITH PRN MOTRIN FOR PAIN AND PRN VISTARIL FOR ANXIETY. PT HAS COMPLETED A 5-DAY ATIVAN TAPER AND IS TO DISCHARGE TODAY; DISCHARGE UDS COLLECTED THIS SHIFT AND RESULTS PLACED IN CHART. PT REPORTS MED HX OF HTN, HYPERLIPIDEMIA, HEP-C+, HERNIATED DISK; PSYCH HX ANXIETY, DEPRESSION, BIPOLAR DO, MOOD DO. PT IS A FULL CODE, ON A REGULAR DIET, AND REPORTS NKA. TOTAL FLUID INTAKE THIS SHIFT: 1210 ML ORAL; OUTPUT: URINE X2, BM X0. VSS THIS SHIFT. PT IS CURRENTLY IN BED AND SLEPT FOR 6 HOURS THIS SHIFT. ALL SAFETY PRECAUTIONS ARE IN PLACE. ALL NEEDS ATTENDED AND MET. WILL ENDORSE TO DAY SHIFT NURSE.
[2016-05-27 08:00] VITALS: BP 139/92
[2016-05-27] MEDS: GABAPENTIN 300 MG CAPSULE PO SCH (08:31)
[2016-05-27] MEDS: VENLAFAXINE XR 75 MG CAP.SR.24H PO SCH (08:31)
[2016-05-27] MEDS: risperiDONE 1 MG TABLET PO SCH (08:31)
[2016-05-27 08:32] VITALS: BP 139/92
[2016-05-27] MEDS: MULTIVITAMINS,THERAPEUTIC TABLET PO SCH (08:32)
[2016-05-27] MEDS: CARVEDILOL 25 MG TABLET PO SCH (08:32)
[2016-05-27] MEDS: FOLIC ACID 1 MG TABLET PO SCH (08:32)
[2016-05-27] MEDS: DICYCLOMINE HCL 20 MG TABLET PO SCH (08:32)
[2016-05-27] MEDS: LAMOTRIGINE 200 MG TABLET PO SCH (08:32)
[2016-05-27] MEDS: THIAMINE HCL 100 MG TABLET PO SCH (08:33)
--- NOTE | 2016-05-27 10:05 | NUR ---
Discharge note PT has been discharged from [facility]. PT is in Stable condition, VS WNL. Denies suicidal and homicidal ideations at this time. All documentation has been completed, paperwork signed and dated. Pt left with all of his belongings, medications and prescriptions. Pt has been discharged from [facility] on 05/27/16 at 1005. has been Notified.
== END 2016-05-27 10:05 | disposition home or self-care (01) | DRG 895 ==
LOC: SRC 19:18
PROVIDERS: ADMIT Internal Medicine; ATTEND Internal Medicine
PROC: HZ2ZZZZ Detoxification Services for Substance Abuse Treatment (ICD-10-PCS; principal; 2016-05-20)
PROC: HZ41ZZZ Group Counseling for Substance Abuse Treatment, Behavioral (ICD-10-PCS; 2016-05-21)
PROC: HZ31ZZZ Individual Counseling for Substance Abuse Treatment, Behavioral (ICD-10-PCS; 2016-05-22)
DX: F10.230 Alcohol dependence with withdrawal, uncomplicated (principal); E87.1 Hypo-osmolality and hyponatremia; K70.10 Alcoholic hepatitis without ascites; Y90.9 Presence of alcohol in blood, level not specified; F17.210 Nicotine dependence, cigarettes, uncomplicated; F41.9 Anxiety disorder, unspecified; D69.6 Thrombocytopenia, unspecified; E86.1 Hypovolemia; I10 Essential (primary) hypertension; F31.9 Bipolar disorder, unspecified; B19.20 Unspecified viral hepatitis C without hepatic coma; T43.501A Poisoning by unspecified antipsychotics and neuroleptics, accidental (unintentional), initial encounter; Y92.89 Other specified places as the place of occurrence of the external cause; E87.8 Other disorders of electrolyte and fluid balance, not elsewhere classified; E11.9 Type 2 diabetes mellitus without complications; R19.7 Diarrhea, unspecified; G25.81 Restless legs syndrome
CPT/HCPCS: 36415; 70030-TC; 80307; 80346; 82306; 82746; 83690; 83735; 84443; 85025; 85610; 86580; 86592; 86625; 86705; 86803; 87046; 87340; 87806; 93005; G6040-TC; J2550; J3411; Q0162